=== PATIENT | female | born 1940 | race Caucasian/White ===

== ENCOUNTER → 2016-06-12 | Outpatient (CLI) | payer MEDICARE ==
--- NOTE | 2016-06-12 11:46 | MM ---
Reason for exam: history of breast cancer, mastectomy. Last mammogram was performed 1 year ago. History: Patient is postmenopausal and has history of breast cancer at age 58. Family history of breast cancer in grandmother at age 80. Mastectomy of the left breast, February 22, 1999. Malignant excisional biopsy of the left breast, February 06, 1999. Benign stereotactic core biopsy of the left breast, July 18, 1998. Core biopsy of the left breast. Took estrogen for 1 year beginning at age 55. Took tamoxifen for 5 years beginning at age 59. Physical Findings: Nurse did not find any significant physical abnormalities on exam. MG 3D Diag Mammo W/Cad RT CC and MLO view(s) were taken of the right breast. Prior study comparison: June 12, 2015, right breast MG 3d diag mammo w/cad RT. There are scattered fibroglandular densities. Finding: There are typically benign vascular calcifications in the right breast. No significant changes in finding since June 12, 2015. These results were verbally communicated with the patient and result sheet given to the patient on 06/12/16. ASSESSMENT: Benign, BI-RAD 2 RECOMMENDATION: Follow-up diagnostic mammogram of the right breast in 1 year.
== END | disposition home or self-care (01) ==
LOC: RADMAMWWP 09:38
PROVIDERS: ATTEND Surgery
DX: Z85.3 Personal history of malignant neoplasm of breast (principal)
CPT/HCPCS: G0206; G0279; 77080

== ENCOUNTER → 2016-06-12 | Outpatient (CLI) | payer MEDICARE ==
--- NOTE | 2016-06-12 13:56 | BD ---
EXAMINATION TYPE: MG DEXA axial skeleton. DATE OF EXAM: 06/12/2016 10:50 AM CLINICAL HISTORY: Height: 61.50 Weight: 137 FRAX RISK QUESTIONS: Alcohol (3 or more units per day): no Family History (Parent hip fracture): no Glucocorticoids (More than 3mos): no (Ex: prednisone, prednisolone, methylprednisolone, dexamethasone, and hydrocortisone). History of Fracture in Adulthood: yes Secondary Osteoporosis: 1. Type 1 Diabetes: no 2. Hyperthyroidism: unsure 3. Menopause before 45: no 4. Malnutrition: no 5. Chronic liver disease: no Rheumatoid Arthritis: no Current Tobacco Use: no RISK FACTORS HISTORY OF: Other Fractures since Age 49: yes, left ankle When: 2011 Family History of Osteoporosis: no Drink Alcohol: very very rarely Active: yes Diet low in dairy products/other sources of calcium: somewhat Postmenopausal woman: yes Take estrogen and/or progesterone medications: not now How long: age [age] Lost more than 2 inches in height since high school: yes, states was once about 65 inches tall, or at least 64 inches Frequent falls: not now, perhaps a bit during brain sarcoidosis [id number] Poor Health: somewhat Hyperparathyroidism: no Adrenal Insufficiency: no MEDICATIONS: Prednisone or other steroids: no Thyroid Medications: yes Which medication: Levothyroxine How Long: at least over 20 years Osteoporosis Medications: not now Which medication: Fosamax ; How Long: not more than a year Additional Medications: Singulair , metformin, hydrochlorothiazide, potassium, blood pressure meds, atorvastatin calcium, montelukast, Vitamin D History of antineoplastic age 60-64 Additional History: Breast CA, type 2 diabetic, 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 Bone mineral density as measured about the Lumbar spine is: ----- L1-L4(G/cm2): 1.241 T Score Values are as follows: ----- L2: -0.5 ----- L3: 1.1 ----- L4: 1.4 ----- L1-L4: 0.5 Bone mineral density has: Decreased -0.1% since study of: 06/01/2013 Bone mineral density about the R hip (g/cm2): 0.897 Bone mineral density about the L hip (g/cm2): 0.828 T Score values are as follows: -----R Neck: -1.0 -----L Neck: -1.5 -----R Intertrochanter: -0.4 -----L Intertrochanter: -0.8 Bone mineral density has: Decreased -4.9% since study of: IMPRESSION: Osteopenia (T Score between -2.5 and -1 as noted by T score values There is slightly increased risk of fracture and the patient may be considered for treatment. Re-Screen 1-2 years. Bone density is diminished 4.9% within the bilateral hips and diminished 0.1% within the lumbar spine from 05/31/2013. NOTE: T-SCORE=SD OF THE YOUNG ADULT MEAN.
== END | disposition home or self-care (01) ==
LOC: RADBDWWP 09:32
PROVIDERS: ATTEND Internal Medicine
DX: M85.80 Other specified disorders of bone density and structure, unspecified site (principal); Z78.0 Asymptomatic menopausal state
CPT/HCPCS: 77080

== ENCOUNTER → 2017-06-16 | Outpatient (CLI) | payer MEDICARE ==
--- NOTE | 2017-06-16 11:47 | MM ---
Reason for exam: history of breast cancer, mastectomy. Last mammogram was performed 1 year ago. History: Patient is postmenopausal and has history of breast cancer at age 58. Family history of breast cancer in grandmother at age 80. Mastectomy of the left breast, February 22, 1999. Malignant excisional biopsy of the left breast, February 06, 1999. Benign stereotactic core biopsy of the left breast, July 18, 1998. Core biopsy of the left breast. Took estrogen for 1 year beginning at age 55. Took tamoxifen for 5 years beginning at age 59. Physical Findings: Nurse did not find any significant physical abnormalities on exam. MG 3D Diag Mammo W/Cad RT CC, MLO, and LM view(s) were taken of the right breast. Prior study comparison: June 12, 2016, right breast MG 3d diag mammo w/cad RT. June 12, 2015, right breast MG 3d diag mammo w/cad RT. There are scattered fibroglandular densities. Benign calcifications. 4mm upper outer quadrant right low density focal asymmetry, resolves on additional view. These results were verbally communicated with the patient and result sheet given to the patient on 06/16/17. ASSESSMENT: Benign, BI-RAD 2 RECOMMENDATION: Follow-up diagnostic mammogram of the right breast in 1 year.
== END | disposition home or self-care (01) ==
LOC: RADMAMWWP 09:49
PROVIDERS: ATTEND Internal Medicine
DX: Z08 Encounter for follow-up examination after completed treatment for malignant neoplasm (principal); Z85.3 Personal history of malignant neoplasm of breast
CPT/HCPCS: 77065; G0279

== ENCOUNTER → 2018-06-23 | Outpatient (CLI) | payer MEDICARE ==
--- NOTE | 2018-06-23 11:23 | MM ---
Reason for exam: additional evaluation requested from prior study. Last mammogram was performed 1 year ago. History: Patient is postmenopausal and has history of breast cancer at age 58. Family history of breast cancer in grandmother at age 80. Mastectomy of the left breast, February 22, 1999. Malignant excisional biopsy of the left breast, February 06, 1999. Benign stereotactic core biopsy of the left breast, July 18, 1998. Core biopsy of the left breast. Took estrogen for 1 year beginning at age 55. Took tamoxifen for 5 years beginning at age 59. Physical Findings: Nurse did not find any significant physical abnormalities on exam. MG 3D Diag Mammo W/Cad RT CC and MLO view(s) were taken of the right breast. Prior study comparison: June 16, 2017, right breast MG 3d diag mammo w/cad RT. June 12, 2016, right breast MG 3d diag mammo w/cad RT. There are scattered fibroglandular densities. No significant new findings when compared with previous films. These results were verbally communicated with the patient and result sheet given to the patient on 06/23/18. ASSESSMENT: Benign, BI-RAD 2 RECOMMENDATION: Follow-up diagnostic mammogram of the right breast in 1 year.
== END ==
LOC: RADMAMWWP 10:28
PROVIDERS: ATTEND Obstetrics & Gynecology
DX: Z08 Encounter for follow-up examination after completed treatment for malignant neoplasm (principal); Z85.3 Personal history of malignant neoplasm of breast
CPT/HCPCS: 77065; G0279; 77061

== ENCOUNTER → 2019-11-03 | Outpatient (CLI) | payer MEDICARE ==
--- NOTE | 2019-11-04 09:56 | MM ---
Reason for exam: additional evaluation requested from prior study. Last mammogram was performed 1 year and 4 months ago. History: Patient is postmenopausal and has history of breast cancer at age 58. Family history of breast cancer in grandmother at age 80. Mastectomy of the left breast, February 22, 1999. Malignant excisional biopsy of the left breast, February 06, 1999. Benign stereotactic core biopsy of the left breast, July 18, 1998. Core biopsy of the left breast. Took estrogen for 1 year beginning at age 55. Took tamoxifen for 5 years beginning at age 59. Physical Findings: Nurse did not find any significant physical abnormalities on exam. MG 3D Diag Mammo W/Cad RT CC and MLO view(s) were taken of the right breast. Prior study comparison: June 23, 2018, right breast MG 3d diag mammo w/cad RT. June 16, 2017, right breast MG 3d diag mammo w/cad RT. There are scattered fibroglandular densities. No significant new findings when compared with previous films. These results were verbally communicated with the patient and result sheet given to the patient on 11/03/19. ASSESSMENT: Benign, BI-RAD 2 RECOMMENDATION: Follow-up diagnostic mammogram of both breasts in 1 year.
== END | disposition home or self-care (01) ==
LOC: RADMAMWWP 13:29
PROVIDERS: ATTEND Internal Medicine
DX: Z08 Encounter for follow-up examination after completed treatment for malignant neoplasm (principal); Z85.3 Personal history of malignant neoplasm of breast
CPT/HCPCS: 77065; G0279; 77061

== ENCOUNTER → 2020-11-28 | Outpatient (CLI) | payer MEDICARE ==
--- NOTE | 2020-11-29 08:30 | MM ---
Reason for exam: additional evaluation requested from prior study. Last mammogram was performed 1 year and 1 month ago. History: Patient is postmenopausal and has history of breast cancer at age 58. Family history of breast cancer in grandmother at age 80. Mastectomy of the left breast, February 22, 1999. Malignant excisional biopsy of the left breast, February 06, 1999. Benign stereotactic core biopsy of the left breast, July 18, 1998. Core biopsy of the left breast. Took estrogen for 1 year beginning at age 55. Took tamoxifen for 5 years beginning at age 59. Physical Findings: Nurse did not find any significant physical abnormalities on exam. MG 3D Diag Mammo W/Cad RT CC and MLO view(s) were taken of the right breast. Prior study comparison: November 03, 2019, right breast MG 3d diag mammo w/cad RT. June 23, 2018, right breast MG 3d diag mammo w/cad RT. The breast tissue is heterogeneously dense. This may lower the sensitivity of mammography. There are benign appearing vascular calcifications in the right breast. There is no discrete abnormality. Palpable abnormality correspond to right subareolar dermal lesion on physician exam per nurse. These results were verbally communicated with the patient and result sheet given to the patient on 11/28/20. ASSESSMENT: Benign, BI-RAD 2 RECOMMENDATION: Follow-up diagnostic mammogram of the right breast in 1 year.
== END | disposition home or self-care (01) ==
LOC: RADMAMWWP 14:05
PROVIDERS: ATTEND Internal Medicine
DX: Z08 Encounter for follow-up examination after completed treatment for malignant neoplasm (principal); Z86.000 Personal history of in-situ neoplasm of breast
CPT/HCPCS: 77065; G0279; 77061

== ENCOUNTER → 2022-05-30 | Outpatient (CLI) | payer MEDICARE ==
--- NOTE | 2022-05-31 07:28 | US ---
EXAMINATION TYPE: US venous doppler duplex LE RT DATE OF EXAM: 05/30/2022 4:48 PM COMPARISON: NONE CLINICAL HISTORY: S81.801A OPEN WOUND, RT LOWER LE. SIDE PERFORMED: Right TECHNIQUE: The lower extremity deep venous system is examined utilizing real time linear array sonog frantz with graded compression, doppler sonography and color-flow sonography. VESSELS IMAGED: Common Femoral Vein Deep Femoral Vein Greater Saphenous Vein * Femoral Vein Popliteal Vein Small Saphenous Vein * Proximal Calf Veins (* superficial vessels) , Right Leg: Negative for DVT, Grayscale, color doppler, spectral doppler imaging performed of the netta p veins of the lower extremities. There is normal flow, compressibility, vascular waveforms. No evidence for valvular venous insufficiency. IMPRESSION: 1. No evidence for deep vein thrombosis of the right lower extremity. 2. No evidence for valvular venous insufficiency.
--- NOTE | 2022-05-31 19:26 | US ---
EXAMINATION TYPE: US arterial LE single level DATE OF EXAM: 05/30/2022 4:18 PM CLINICAL HISTORY: S81.801A OPEN WOUND, RT LOWER LE. Open wound right lateral calf x 3 weeks. Thickene d toenails. History of: Smoker: No Hypertension: Yes Diabetic: Yes Hyperlipidemia: ?? TIA/CVA: No Previous Vascular Surgery: No CAD: No WI: No Vascular Ulcers: Right Doppler Waveforms: Right: Biphasic, monophasic waveform in the digit Left: Biphasic, monophasic waveform in the digit Pulse Volume Recording: Pressure Gradients: Right Brachial Pressure: 157 Left Brachial Pressure: Deferred due to hx of left mastectomy. Ankle-Brachial Indices: Right: 1.15 Left: 1.25 Toe Brachial Indices: Right: 0.71 Left: 0.64 IMPRESSION: Normal ankle brachial indices bilaterally lower extremities with monophasic waveforms in volving the bilateral digits. Cannot exclude distal peripheral arterial disease.
== END | disposition home or self-care (01) ==
LOC: RADUSWWP 14:47
PROVIDERS: ATTEND Family Medicine
DX: S81.801A Unspecified open wound, right lower leg, initial encounter (principal); E11.9 Type 2 diabetes mellitus without complications; I10 Essential (primary) hypertension
CPT/HCPCS: 93922